=== PATIENT | female | born 1990 | race Caucasian/White ===

== ENCOUNTER → 2017-05-07 | Outpatient (REF) | LOC: LAB 08:07 → EDSTATUS 08:07 | DX: J02.8 Acute pharyngitis due to other specified organisms (principal) ==

== ENCOUNTER → 2021-05-05 | Outpatient (CLI) | payer BC | LOC: RAD 19:00 | DX: M51.16 Intervertebral disc disorders with radiculopathy, lumbar region (principal); M47.816 Spondylosis without myelopathy or radiculopathy, lumbar region ==

== ENCOUNTER 2021-10-26 15:46 | Emergency (ER) | payer BC ==
[2021-10-26] MEDS ORDERED: VENLAFAXINE HCL75 M3 PO (16:14)
[2021-10-26] MEDS ORDERED: PREGABALIN75 MG PO (16:14)
[2021-10-26 16:47] VITALS: BP 128/78
== END 2021-10-26 16:44 | disposition home or self-care (01) ==
LOC: ED 15:46
DX: R05.9 Cough, unspecified (principal)

== ENCOUNTER → 2022-05-01 | Outpatient (CLI) | payer BC ==
[~2022-05-01] MED LIST: PREGABALIN75 MG PO; VENLAFAXINE HCL75 M3 PO
== END ==
LOC: RAD 08:45
DX: R53.1 Weakness (principal)
CPT/HCPCS: A9585